=== PATIENT | male | born 1985 | race Caucasian/White ===

== ENCOUNTER → 2019-03-05 | Outpatient (CLI) | payer OTHER | LOC: COL.RAD 11:08 | DX: Q62.11 Congenital occlusion of ureteropelvic junction (principal) | CPT/HCPCS: A9562; J1940 ==

== ENCOUNTER 2019-03-15 09:18 | Inpatient (IN) | payer OTHER ==
[~2019-03-15] VITALS: Ht 172.7 cm; Wt 62.9 kg
[2019-04-02] VITALS (13 sets, daily range): BP systolic 70–120; BP diastolic 39–77; PULSE 63–82; TEMP 97.4–98.5
--- NOTE | 2019-04-02 08:45 | NUR ---
Patient arrives to [facility] for pre-op admission. He is alert and oriented. Procedure is confirmed. He denies any questions and verbalizes understanding. He changes to clothing independently. PIV started in left wrist with x1 attempt and without complication. Breath sounds clear bilaterally to auscultation. Clear S1S2 heart tones heard with regular rate noted. PERRLA +2 pupils bilaterally. +2 radial, DP, and PT pulses bilaterally. Denies numbness, tingling, or pain. No edema noted. Call light in reach.
[2019-04-02] MEDS ORDERED: ZOLOFT 50MG50 MG PO (08:51)
[2019-04-02] MEDS ORDERED: ATARAX 25MG25 MG/TAB PO (08:51)
--- NOTE | 2019-04-02 10:10 | NUR ---
Patient is resting comfortably in his room, waiting for surgery. He denies any needs at this time.
--- NOTE | 2019-04-02 16:00 | NUR ---
Patient to room via bed with PACU nurses. Patient slightly nauseated and becomes pale, feels like he is going to pass out. Dressings CDI. Valdes patent draining bloody urine. BP low. Patient speech a little slurred. MALAIKA Enrique, contacts Dr. Vaughn at this time.
--- NOTE | 2019-04-02 16:12 | NUR ---
BP stabilized. Dr. Vaughn was notified by PACU nurse and bolus of NS infusing at this time. Patient says that he is feeling better. Rates pain 3/10 in abd, describes as a pressure. Valdes patent draining bloody, lakeshia urine. Patient alert, oriented x3. Currently on his cell phone.
--- NOTE | 2019-04-02 16:53 | NUR ---
Patient feeling better at this time. NS bolus complete. LR at 125mL/hr infusing at this time. Abd lap incisions x4, edges well approximated with bravo set, no dressings on three of the lap sites. The lower abd lap site has BERNARD drain that is compressed with small amount of bloody drainage in bulb, dressing to BERNARD site CDI. Valdes patent draining bloody lakeshia urine. Patient would like to try some jello, ice chips, and water at this time.
--- NOTE | 2019-04-02 18:08 | NUR ---
Patient feeling nauseated and lightheaded. BP's low, 84/39. Says that when he gets this feeling of lightheadedness he has a feeling in left flank area he has a sensation of a wave of pressure and pain that starts at bottom of rib cage, to hip, then a painful burn in his penis.
--- NOTE | 2019-04-02 18:36 | NUR ---
Lying flat in bed. Says that he is feeling better at this time. NS bolus continues to infuse at this time.
[2019-04-02 18:51] LABS: MEAN CELL VOLUME 94 fl (80.0-100.0); MEAN CORPUSCULAR HGB CONC 34 g/dl (33.0-37.0); MEAN PLATELET VOLUME 10.3 fl (7.4-10.4); PLATELET COUNT 313 K/mm3 (130-400); RED BLOOD COUNT 3.11 M/mm3 (4.20-5.60); REDCELL DISTRIBUTION WIDTH-CV 12.7 % (11.5-14.5)
[2019-04-02 18:53] LABS: HEMATOCRIT 29.1 % (42.0-52.0); HEMOGLOBIN 9.9 g/dl (13.5-18.0); MEAN CORPUSCULAR HEMOGLOBIN 32 pg (27.0-31.0)
[2019-04-02 19:04] LABS: CALCIUM 7.8 mg/dL (8.4-10.2); CREATININE, serum 0.9 (0.66-1.25); POTASSIUM 4.1 mmol/L (3.4-5.0)
[2019-04-02 19:18] LABS: BAND 5 % (0-10); LYMPHOCYTE 3 % (20.0-51.0); NEUTROPHILS 91 % (42.0-75.2); PLATELET ESTIMATE NORMAL (NORMAL)
--- NOTE | 2019-04-02 20:00 | NUR ---
Pt. laying in bed at this time. Pt. is A&OX3, assessment complete. IV to lt. wrist patent, IV fluids infusing per orders. Four abd lap sites with bravo set. BERNADETTE drain to lt. abd. Dressing saturated. Dressing changed at this time. 3 4X4's and paper tape used at this time. Minimal drainage noted in the bernadette drain at this time. Pt. reports that pain is intermittant and comes in a wave. Pt. reported to be having BP drops when the pain gets intense. Vitals stable at this time. Valdes catheter to DD, dark lakeshia urine with a tinge of red noted. Pt. denies further needs at this time. Call light within reach.
[2019-04-02 20:57] LABS: COLLECTION METHOD IN
[2019-04-02 21:10] LABS: MUCOUS Present /lpf; PH 5 (5-8); SQUAMOUS EPITHELIAL 0-2 /hpf; URINE APPEARANCE Hazy; URINE BACTERIA Rare /hpf; URINE BILIRUBIN Negative (NEGATIVE); URINE BLOOD 3+ (NEGATIVE); URINE COLOR Yellow; URINE GLUCOSE 1+ (NEGATIVE); URINE KETONE 1+ (NEGATIVE); URINE LEUKOCYTE ESTERASE 1+ (NEGATIVE); URINE NITRATE Negative (NEGATIVE); URINE PROTEIN(semi-quant) 2+ (NEGATIVE); URINE RBC >50 /hpf; URINE UROBILINOGEN Negative (NEGATIVE)
[2019-04-03 03:21] VITALS: BP 111/46; PULSE 65; TEMP 97.7
--- NOTE | 2019-04-03 03:45 | NUR ---
Pt. resting queitly at this time. Dressing to BERNARD checked. Dressing is saturated again at this time. BERNARD drainage only 10 mls. Dressing changed 3 4X4's and paper tape used. Pt. tolerated well.
--- NOTE | 2019-04-03 06:15 | NUR ---
Dressing checked and not as saturated at this time. Did change dressing again 3 4X4's and paper tape used.
[2019-04-03 06:56] VITALS: BP 102/52; PULSE 68; TEMP 97.9
--- NOTE | 2019-04-03 07:06 | NUR ---
Shift assessment completed. IV infusing at 150 ml\hr. Assessed incision LLQ of abdomen bandage is soaked and bloody. BERNARD in place. P states that the pain is 3 out of 10 with pressure above the incision site. Valdes in place, lakeshia color urine in bag.
--- NOTE | 2019-04-03 07:30 | NUR ---
Dr Vaughn here to see patient.
--- NOTE | 2019-04-03 08:29 | NUR ---
Patient states that the pain is 3/10 and that there is pressure above the incision. Pt states that he wants something for the pain. Gave Tramadol 100mg PO
--- NOTE | 2019-04-03 09:00 | NUR ---
Patient alert and oriented, answers questions appropriately. See assessment. Abdomen soft, non tender, non distended. Bowel sounds active x4 quads. +Flatus. Lap sites to abdomen with edges well approximated, no redness or drainage noted. BERNARD drain to LLQ compressed, bloody drainage in bulb. Copious amounts of blood drainage in dressing around drain, changed. Valdes catheter removed this am, has urinated since removal. Ambulation encouraged. No c/o at this time.
[2019-04-03 10:31] VITALS: BP 96/57; PULSE 86
--- NOTE | 2019-04-03 11:05 | NUR ---
SAMUEL met with the patient to discuss discharge plan. The patient lives alone in [place] and is in the [employer]. He states that his , Luda Santana (ph#[phone]), lives in [place]. He reports independence with ADLs and does not have any DME. The patient's primary care provider is Captain James Gonzales at the [facility] and he receives his medications at [facility]. He reports no difficulties obtaining his meds. The patient does not have advanced directives in EMR, but he states that he does have them completed. He states that his is his DPOA-HC. The patient plans to return home upon discharge. No additional needs at this time.
--- NOTE | 2019-04-03 12:52 | NUR ---
Initial visit; Patient thanked Doughnut Fryer for looking in on him and offering God's blessings.
--- NOTE | 2019-04-03 14:00 | NUR ---
BERNARD drain discontinued, fluid sent to lab. Tolerated well.
[2019-04-03 16:10] VITALS: BP 98/59; PULSE 78; TEMP 98.1
[2019-04-03 20:08] VITALS: BP 98/55; PULSE 76; TEMP 98.6
--- NOTE | 2019-04-03 20:31 | NUR ---
Pt doing ok. Does c/o pain to left groin area. PRN oxycodone given. Took pm meds well. VSS. Mildy tachy at times of movement. Did ambulate in add[place] about 200ft. Has not had BM. BERNARD drain incision to left side of abdomen, covered with gauze. Denies needs at this time. Call light within reach, will continue to monitor
[2019-04-03 23:56] VITALS: BP 104/61; PULSE 79; TEMP 98
--- NOTE | 2019-04-04 03:08 | NUR ---
pt accidentally pulled out iv, 22g restarted in right hand.
[2019-04-04 03:53] VITALS: BP 100/53; PULSE 78; TEMP 97.5
--- NOTE | 2019-04-04 06:20 | NUR ---
pt sleeping in bed, has not slept most of night. call light within reach, will continue to monitor
[2019-04-04 08:00] VITALS: BP 103/61; PULSE 76; TEMP 98.4
[2019-04-04 12:56] VITALS: BP 103/60; PULSE 88; TEMP 98.6
--- NOTE | 2019-04-04 13:49 | NUR ---
Pt resting after walk, call light within reach, c/o still having bladder spasms, reported to MALAIKA Child and gave sign off report
[2019-04-04 15:42] VITALS: BP 112/64; PULSE 97; TEMP 99
--- NOTE | 2019-04-04 18:00 | NUR ---
The plan was for patient to discharge this afternoon. He has been having very sharp abdomen cramps. Patient continues to pass flatus and is urinating without issues. He was given a suppository, flomax and pyridium. Dr Vaughn aware that the patient is having the cramps. KUB was done as well. Patient is staying one more night and will hopefully discharge tomorrow. No other changes at this time. Patient conitnues to make several laps around the unit. Call light within reach.
[2019-04-04 19:42] VITALS: BP 123/68; PULSE 98; TEMP 99.1
--- NOTE | 2019-04-04 20:30 | NUR ---
Report received. Assumed care for shift engineer. A&Ox3. Assessment complete. VS stable. Has been ambulating in hallway this evening. States he is having gas pains causing severe cramping. Has started passing gas/no BM yet. Voiding without difficulty. Denies nausea/shortness of breath. C/O pain to abdomen/bladder-rates 5/10 on scale-described as cramping/spasms. Oxycodone given per dr order. Denies questions/concerns. Call light in reach. Will monitor.
[2019-04-05 00:31] VITALS: BP 118/69; PULSE 82; TEMP 98.5
--- NOTE | 2019-04-05 00:45 | NUR ---
Ambulating in hallway to help relieve gas pain. States he is having left lower quadrant pain that radiates up in to the shoulder. Denies need for intervention.
[2019-04-05 04:29] VITALS: BP 121/70; PULSE 86; TEMP 98.1
--- NOTE | 2019-04-05 04:49 | NUR ---
Rested off and on this shift. C/O cramping/shoulder pain-did ambulate x3 times this shift to help with gas pain. +flatus. Voiding without difficulty. Tolerating PO. Denies needs currently. Encouraged to call for questions/concerns. Will monitor.
[2019-04-05 07:43] VITALS: BP 114/64; PULSE 107; TEMP 97.7
--- NOTE | 2019-04-05 08:56 | NUR ---
Patient alert and oriented, answers questions appropriately. See assessment. Abdomen soft, non tender, non distended. Bowel sounds active x4 quads. +Flatus. Abdomen lap sites with edges well approximated, no redness or drainage noted. Post op exercises reviewed with patient. No c/o at this time.
--- NOTE | 2019-04-05 08:56 | NUR ---
Dr Vaughn here to see patient.
--- NOTE | 2019-04-05 09:53 | NUR ---
08:00 Heart Rate at 107 pt is tolerating well with no complaints, Primary Nurse Alba, MALAIKA informed, will continue to monitor.
--- NOTE | 2019-04-05 09:55 | NUR ---
08:45 Heart reassessed at 97, pt tolerated well with no complains, Primary Nurse Alba informed.
--- NOTE | 2019-04-05 10:30 | NUR ---
INT from right hand removed catheter intact
--- NOTE | 2019-04-05 10:37 | NUR ---
Discharge instructions reviewed with patient, verbalized understanding. Discharged ambulatory to auto/home with friend at 1035.
== END 2019-04-05 10:35 | disposition home or self-care (01) | DRG 661 ==
LOC: INPTSU 04-02 07:55 → SURG 04-02 11:30
PROVIDERS: ADMIT Urology
PROC: 0TQ44ZZ Repair Left Kidney Pelvis, Percutaneous Endoscopic Approach (ICD-10-PCS; principal; 2019-04-02 11:30)
PROC: 0T778DZ Dilation of Left Ureter with Intraluminal Device, Via Natural or Artificial Opening Endoscopic (ICD-10-PCS; 2019-04-02 11:30)
PROC: 8E0W4CZ Robotic Assisted Procedure of Trunk Region, Percutaneous Endoscopic Approach (ICD-10-PCS; 2019-04-02 11:30)
DX: N13.1 Hydronephrosis with ureteral stricture, not elsewhere classified (principal); I95.89 Other hypotension
CPT/HCPCS: A4314; A9284; C1729; C1769; C2617; J0330; J0690; J1100; J1885; J1956; J2405; J2704; J3010; J7030; J7120